=== PATIENT | female | born 1990 | race Two or more races ===

== ENCOUNTER 2023-03-24 12:53 | Outpatient (AMB) | payer OTHER, MEDICAID, SELFPAY ==
--- NOTE | 2023-03-24 12:57 | MHC.OFFVIS ---
Intake Vital Signs 03/24/23 13:00 Height 5 ft 2 in Weight 130 lb BMI 23.8 BP 138/98 H Blood Pressure Location Rt brachial Position Sitting Pulse 80 Pulse Source Pulse Oximeter Pulse Oximetry (%) 98 Oxygen Delivery Method Room Air Intake Visit Reasons: ENP-Tingling on numbness of hand and feet Intake Note: Patient presents for tingling and numbness on hands and feet. Patient states This started several years ago I had an EMG and blood work and I tested positive for RA with positive HERNESTO after that I started having a lot of joint pain. I ended up seeing a rheumotologist who ran more test and diagnosed me hashimotto disease Allergies No Known Allergies Allergy (Verified 03/24/23 13:08) Medication List - Last Reconciled 03/24/23 by MARYLOU Pepe dupilumab (Dupixent) 300 mg subcut QWEEK fluticasone propionate 220 mcg/actuation (Flovent HFA) inhalation loratadine 10 mg PO DAILY lorazepam 0.5 mg PO BID PRN HPI HPI Comments History of Present Illness Details Right handed 33-yr-old female presents for neurological evaluation of: BUE/BLE paresthesias. PMH significant for RA, thyroid dz, eosonophilic esophagitis. Pt reports that she has had Bilateral hands (sometimes up to elbows) and feet numbness and tingling for many years. This comes and goes randomly- she can just be sitting or sleeping. Her feet will often wake her up at night. She feels her hands are not as strong- difficulty opening jars, brushing her hair makes her hands feel tired/weak. Her finger and toe nails often become purple. Her hands and feet are usually cold. She has swelling in her hands and feet. Chronic neck pain that may shoot into her shoulders, chronic non-radiating low back pain- feels like she is sleeping a bit better since she obtained a sleep number bed. Denies leg/feet weakness. No usual exercise- has a peleton- but hurt her tailbone and her neck bothers her. 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 Pt was diagnosed w/ RA several years ago- was having hand pain/weakness. Manages w/ prn Tylenol, heat, ice. Pt was diagnosed w/ eosonophilic esophagitis (EOE) in May 2022- she was having difficulty swallowing, GERD, abd pain. Started on Dupixent x's 5 months which has been helpful. She is f/b Dr Red at [facility] and Gertrude Fournier at [facility]. She was diagnosed w/ Cindy's thyroiditis- currently euthyroid, f/b Dr Sharon Sloan ([facility]). Previous c-spine MRI- Abnormal cervical curvature likely d/t muscle spasm. Multi-level degenertaive changes, most pronounced at C5-6 w/ small left paramedian disc extrusion, effecament of the anterior left aspect of the spinal cord. Patient endorses: Knee swelling. Mild headaches. Some lightheaded/dizziness. Hands and feet muscle cramps. Restlessness. And patient denies: Snoring. She has a family h/o RA on her mother's side. No known family h/o neuropathy (father is adopted). [facility] Medical History (Updated 03/24/23 @ 18:05 by MARYLOU Pepe) Eosinophilic esophagitis Depression Surgical History (Updated 03/17/23 @ 11:41 by MALKA Alvarado) History of esophagogastroduodenoscopy (EGD) Hx laparoscopic cholecystectomy Family History Father HTN (hypertension) Social History Alcohol intake: never Patient Tobacco Use Status: Never used Tobacco Review of Systems Const Details: See scanned ROS form Physical Exam Vital Signs: Last Vital Signs Pulse 80 03/24/23 13:00 BP 138/98 H 03/24/23 13:00 Pulse Ox 98 03/24/23 13:00 Oxygen Delivery Method Room Air 03/24/23 13:00 BMI result Body Mass Index 23.8 Const General: cooperative and no acute distress Orientation/consciousness: patient oriented x3 HEENT Head: Yes normocephalic Resp Effort & Inspection: normal respiratory effort and able to speak in complete sentences Back/Spine/Pelvis Other: Bilateral posterior cervical tightness. Cervical ROM: very limited in all pemberton Left Spurling: elicits posterior neck non-radiating pain Right Spurling: elicits posterior neck non-radiating pain Neuro Other: BUE- vibration sensation dulled. BUE- positive Tinel, Phalen, Medial compression test. BLE- position sense, vibration, light/sharp touch intact. 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) Deep tendon reflexes (DTR's): Right triceps reflex intensity grade: 2+, Left triceps reflex intensity grade: 2+, Rt Biceps (C5, C6): 2+, Left biceps reflex intensity grade: 2+, Right brachioradialis reflex intensity grade: 2+, Left brachioradialis reflex intensity grade: 2+, Right patellar reflex intensity grade: 2+ and Left patellar reflex intensity grade: 2+ Plantar Reflex Responses: downgoing: bilateral Psych Appearance: grossly normal Mental Status: mental status grossly normal Speech and movement: Normal speech and movement present Affect: normal affect Attitude: cooperative Thought process: Normal thought process present Thought content: Normal thought content present Insight: Good insight present (Psych) Assessment & Plan Assessment & Plan (1) Paresthesias: Comment: BUE and BLE- symmetric Code(s): R20.2 - Paresthesia of skin (2) Cervicalgia: Code(s): M54.2 - Cervicalgia Plan Will check labs for common etiologies of paresthesias. Pt advised to undergo BUE then BLE EMG/NCS. Pt is not interested in trying any medications at this point. f/u in 3 months or sooner prn. Orders: Orders Folate Today E06.3 - Autoimmune thyroiditis, F32.A - Depression, unspecified, M06.9 - Rheumatoid arthritis, unspecified, R20.2 - Paresthesia of skin Ferritin Today E06.3 - Autoimmune thyroiditis, F32.A - Depression, unspecified, M06.9 - Rheumatoid arthritis, unspecified, R20.2 - Paresthesia of skin Comprehensive Met. Panel Today E06.3 - Autoimmune thyroiditis, F32.A - Depression, unspecified, M06.9 - Rheumatoid arthritis, unspecified, R20.2 - Paresthesia of skin Complete Blood Count Auto Diff Today E06.3 - Autoimmune thyroiditis, F32.A - Depression, unspecified, M06.9 - Rheumatoid arthritis, unspecified, R20.2 - Paresthesia of skin NE electromyogram (EMG) Today E06.3 - Autoimmune thyroiditis, M06.9 - Rheumatoid arthritis, unspecified, R20.2 - Paresthesia of skin Vitamin B12 and Folate Today E06.3 - Autoimmune thyroiditis, F32.A - Depression, unspecified, M06.9 - Rheumatoid arthritis, unspecified, R20.2 - Paresthesia of skin IRON PROFILE Today E06.3 - Autoimmune thyroiditis, F32.A - Depression, unspecified, M06.9 - Rheumatoid arthritis, unspecified, R20.2 - Paresthesia of skin NE electromyogram (EMG) Today E06.3 - Autoimmune thyroiditis, M06.9 - Rheumatoid arthritis, unspecified, R20.2 - Paresthesia of skin Coding Level of Care Code New Pt Level 4 (63143) Diagnoses Paresthesias R20.2 Cervicalgia M54.2
[2023-03-24 13:00] VITALS: BP 138/98; PULSE 80; O2SAT 98; BMI 23.8
== END 2023-03-24 14:19 | disposition home or self-care (01) ==
PROVIDERS: Visit Provider Nurse Practitioner Family
DX: R20.2 Paresthesia of skin (principal); M54.2 Cervicalgia
CPT/HCPCS: 99204

== ENCOUNTER → 2023-03-24 12:53 | Outpatient (BNVA) | payer OTHER, MEDICAID, SELFPAY | PROVIDERS: Visit Provider Nurse Practitioner Family ==

== ENCOUNTER 2025-01-25 14:15 | Outpatient (AMB) | payer OTHER, SELFPAY ==
[2025-01-25 14:30] VITALS: BP 102/70; PULSE 92; O2SAT 99; BMI 24.3
--- NOTE | 2025-01-25 14:30 | A.OFFVIS_ITS ---
Vital Signs 3 01/25/25 14:30 Height 5 ft 2 in Weight 132 lb 11.492 oz BMI 24.3 BP 102/70 Blood Pressure Location Lt brachial Position Sitting Pulse 92 Pulse Source Pulse Oximeter Pulse Oximetry (%) 99 Oxygen Delivery Method Room Air Intake Visit Reasons: Hashimotos Intake Note: New patient present today for Hashimotos. 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 Diagnosed in early 30s. Diagnosed by rhuematology Dr. Howard . diagnosed with Hashimotos. Started levothyroxine Jul 2024. Currently on levothyroxine 25 mcg Wednesday to feels nothing much has since she has been on levothyroxine Chronic fatigue remains Joint pains gained 5 lbs in 2 months or so Reports palpitations intermittently no tremors on exam Reports some blurriness of vision, does have asitgmatism constipation Reports hair loss No skin changes Patient denies any difficulty swallowing, pain on swallowing or voice changes or difficulty breathing. LMP : over a year ago Not since IUD, Mirena in 2023 Patient denies any history of childhood neck radiation. Denies having ever used lithium, amiodarone or biotin supplements. Patient denies any family history of thyroid cancer or thyroid disease. 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 No drug use Alcohol: no alcohol Physical exam General: sitting comfortably in no acute distress HEENT: normocephalic/atraumatic, EOM intact, moist oral mucosa Neck: supple, palpable 0.5 cm left-sided nodule Cardiac: normal heart sounds Pulm: normal breath sounds B/L, no added breath sounds Abd: not distended, no tenderness Extremities: no edema, no signs of myxedema Neuro: AAO x3, Speech: normal, no facial droop, moving all 4 extremities [facility] Medical History (Updated 03/24/23 @ 18:05 by MARYLOU Pepe) Eosinophilic esophagitis Depression Surgical History History of esophagogastroduodenoscopy (EGD) Hx laparoscopic cholecystectomy Family History Father HTN (hypertension) Social History Alcohol intake: never Patient Tobacco Use Status: Never used Tobacco Physical Exam Vital Signs: Last Vital Signs Pulse 92 01/25/25 14:30 BP 102/70 01/25/25 14:30 Pulse Ox 99 01/25/25 14:30 Oxygen Delivery Method Room Air 01/25/25 14:30 BMI result Body Mass Index 24.3 Assessment & Plan Assessment & Plan (1) Cindy's thyroiditis: Code(s): E06.3 - Autoimmune thyroiditis Category: Medical Plan: 34-year-old female coming in today for initial evaluation of Cindy's thyroiditis. She has a lot of chronic nonspecific symptoms, has a underlying RA some of these could be from them. Blood work from July 2024 showed high normal TSH of 3.99, apparently she has a history of positive TPO antibodies diagnosed by Rheumatology in the past. While this TSH was normal, she was started on levothyroxine 25 mcg Wednesday to which she has been taking. She does not report any improvement in her symptoms since taking the levothyroxine. At this point we will repeat labs. I explained to her that TPO antibodies can be prevalent in 10-20% of the general population, and there is no predictability whether and when she will develop thyroid dysfunction. We usually recommend annual TFTs done with the PCP. At this point she has been on levothyroxine 25 mcg Wednesday to but it is not helping her, so I will repeat labs today, and depending on that most likely we will take her off the levothyroxine and plan to repeat labs again prior to her next follow up. During my exam I do feel a palpable nodule on the left side, about 0.5 cm. We will do a thyroid ultrasound. Plan: -ordered ultrasound of the thyroid -ordered TSH, free T4, TPO antibodies and total T3 -we will reach out with the results -for now continue levothyroxine as it is but we will communicate results do and further recommendations regarding the levothyroxine over the phone -follow up in 8 weeks Plan I spent 45 minutes in reviewing the record, seeing the patient and documenting in the medical record. Orders: Orders 2 Thyroid Stimulating Hormone Today E06.3 - Autoimmune thyroiditis Triiodothyronine T3 Total Today E06.3 - Autoimmune thyroiditis Free T4 (Free Thyroxine) Today E06.3 - Autoimmune thyroiditis Thyroid Peroxidase Antibodies Today E06.3 - Autoimmune thyroiditis US thyroid Today E06.3 - Autoimmune thyroiditis Patient Instructions: Do blood work now , we will reach out with results Do thyroid ultrasound , someone will call you to schedule this , please make sure this is done prior to my next follow up Follow up in 8 weeks to discuss results Coding Level of Care Code New Pt Level 4 (65925) Diagnoses Cindy's thyroiditis E06.3 Time Spent (min) 45
== END 2025-01-25 15:35 | disposition home or self-care (01) ==
LOC: HO.ENCR 14:16
PROVIDERS: PCP Internal Medicine; Visit Provider Student in an Organized Health Care Education/Training Program
DX: E06.3 Autoimmune thyroiditis (principal)
CPT/HCPCS: 99204

== ENCOUNTER → 2025-01-25 14:15 | Outpatient (BNVA) | payer OTHER, SELFPAY | PROVIDERS: PCP Internal Medicine; Visit Provider Student in an Organized Health Care Education/Training Program | DX: E06.3 Autoimmune thyroiditis (principal) | CPT/HCPCS: 99202 ==

== ENCOUNTER 2025-03-26 09:29 | Outpatient (REF) | payer OTHER, SELFPAY ==
--- NOTE | ~2025-03-26 | US_ITS ---
EXAMINATION: US THYROID HISTORY: E06.3 - Autoimmune thyroiditis TECHNIQUE: Real-time grayscale ultrasound imaging was performed and images were reviewed. COMPARISON: There are no prior studies available for comparison. FINDINGS: SIZE: The right thyroid lobe measures 5.0 x 1.7 x 1.5 cm. The left thyroid lobe measures 4.2 x 1.3 x 1.7 cm. The isthmus measures 2 mm. FLOW: Flow to the gland is increased. ECHOGENICITY: The echotexture of the gland is heterogeneous. NODULES: No nodules are identified. There is a normal-appearing exposure 4 x 5 mm lymph node inferior to the left thyroid lobe. US/US thyroid IMPRESSION: Heterogeneous thyroid echotexture with increased vascularity. No discrete nodules are identified. ACR TI-RADS Guidelines TR1 (0 points): Benign. No follow-up or biopsy required TR2 (2 points): Not Suspicious. No biopsy or follow up indicated TR3 (3 points): Mildly Suspicious. FNA if >= 2.5 cm, Follow if >= 1.5 cm TR4 (4-6 points): Moderately Suspicious. FNA if >= 1.5 cm, Follow if >= 1.0 cm TR5 (>=7 points): Highly Suspicious. FNA if >= 1.0 cm, Follow if >= 0.5 cm Electronically signed by: Axel Gimenez MD 03/26/2025 09:56 AM EDT
--- OUTSIDE RECORDS SUMMARY | 2025-03-26 11:26 | XMS_ITS | Clinical Summary ---
Author Organization [employer] Address [address] [place] [address] [address] [place] [address] Care Team Providers Care Market Intelligence Consultant Name Role Phone Unavailable Primary Care Provider Unavailabl e Allergies Active Allergy Reactions Criticality Noted Date Comments Bee Venom 05/20/2023 [place]-Containing Products Swelling 10/20/2022 Milk-Related Compounds Diarrhea 10/20/2022 Peanut-Containing Drug Products Anaphylaxis High 05/2023 Tomato Swelling 10/20/2022 Medications busPIRone (Buspar) 5 MG tablet Take 1 tablet by mouth every 12 (twelve) hours. 2 Active citalopram (CeleXA) 10 MG tablet Take 1 tablet by mouth in the morning. Active etonogestrel-eth inyl estradiol (NuvaRing) 0.12-0.015 MG/24HR vaginal ring Insert into the vagina. Active omeprazole (PriLOSEC) [address] capsule Take 1 capsule by mouth at bed time. Active sertraline (Zoloft) 25 MG tablet Take 1 tablet by mouth at bed time. Active Dupixent 300 MG/2ML injection 3 Active LORazepam (Ativan) 0.5 MG tablet Take 0.5 mg by mouth if needed in the morning and at bedtime. 3 Active D3 50 MCG (1999 UT) tablet Take by mouth Once per day. 4 Active fluticasone (Flonase) 50 MCG/ACT nasal spray Administer 2 sprays into each nostril Once per day. 4 Active loratadine (Claritin) 10 MG tablet Take 10 mg by mouth at bedtime. 4 Active ergocalciferol (Vitamin D2) 1.25 MG (67549 UT) capsule TAKE 1 CAPSULE BY MOUTH ONE TIME PER WEEK 4 Active spironolactone (Aldactone) 50 MG tablet TAKE 1 TABLET BY MOUTH EVERY DAY WITH FOOD Active Levonorgestrel 20 MCG/DAY intrauterine device 1 Each by Intrauterine route Once. 3 028 Active Active Problems Problem Noted Date Diagnosed Date Vitamin D deficiency 08/10/2019 Anxiety and depression 03/18/2018 Encounters Date Type Department Care Team Description 01/02/2025 8:00 AM EDT Office Visit [facility] [address] [place] [address] Avis Clifford Dental calculus (Primary Dx) from Last 3 Months Social History Tobacco Use Types Packs/Day Years Used Date Smoking Tobacco: Never Passive Smoke Exposure: Never Smokeless Tobacco: Never Tobacco Cessation:Counseling Given: Not Answered Alcohol Use Standard Drinks/Week Comments Never 0 (1 standard drink = 0.6 oz pur e alcohol) Comments Unknown Sex and Gender Information Value Date Recorded Sex Assigned at Female 05/11/2022 10:22 AM EDT Legal Sex Female 10:22 AM EDT Gender Identity Female 05/11/2022 10:22 AM EDT Sexual Orientation Straight 05/11/2022 10 :22 AM EDT Last Filed Vital Signs Vital Sign Reading Time Taken Comments Blood Pressure 126/74 01/02/2025 8:04 AM EDT Pulse 76 01/21/2024 9:01 AM EDT Temperature - - Respiratory Rate - - Oxygen Saturation - - Inhaled Oxygen Concentration - - Weight - - Height - - Body Mass Index - - Plan of Treatment Upcoming Encounters Date Type Department Care Team (Late st Contact Info) Description 07/11/2025 10:00 AM EST Office Visit [facility] [address] [place] [address] Avis Clifford Health Maintenance Due Date Last Done Comments Depression Screening 1989 HIV Screening 1989 SDOH Screening 1989 Disability Screening 1989 IPV Vaccines (2 of 3 - 4-dose series) 12/14/1991 11/16/1991 Alcohol/Substance Use Screening 2001 Hepatitis B Vaccines (4 of 4 - 4-dose series) 06/20/2001 06/06/2001, 06/06/2001, 04/25/2001, Additional history exists Family Planning (PISQ) 02/12/2004 Hepatitis C Screening 2007 Pap Smear 2010 Cervical Cancer Screening 2019 HPV/Cotest 2019 Dental Oral Exam 07/24/2024 01/21/2024, 03/2023, 04/07/2022 COVID-19 Vaccine ( - season) 2025 05/16/2021, 10/17/2020, 09/26/2020 Influenza Vaccine (#1) 2025 , 04/27/2023, 04/18/2021, Additional history exists Dental Prophylaxis 07/05/2025 01/02/2025, 0 01/21/2024, 05/20/2023, Additional history exists DTaP/Tdap/Td Vaccines (9 - Td or Tdap) 07/25/2025 07/25/2015, 12/17/2011, 11/09/2007, Additional history exists Tobacco Screening 01/02/2026 01/02/2025 Dental X-Ray: Bitewings 01/03/2026 01/03/20, 05/20/2023, 04/07/2022 Dental X-Ray: Full Mouth 01/04/2028 01/02/2025, 04/12 Zoster Vaccines (1 of 2) 2039 RSV Patients and Patients Aged 60 years or older (1 - 1-dose 75+ series) 02/12/2064 HIB Vaccines Completed 11/16/1991, 11/16/1991 Meningococcal Vaccine Aged Out 01/27/2007 No doug kingston eligible based on patient's age to complete this topic HPV Vaccines Completed 11/09/2007, 01/09, 11/18/2006 Hepatitis A Vaccines Aged Out No long er eligible based on patient's age to complete this topic Meningococcal B Vaccine Aged Out No l onger eligible based on patient's age to complete this topic Pneumococcal Vaccine: Pediatrics (0 to 5 Years) and At-Risk Patients (6 to 49) Years Aged Out No longer eligible based on patient's age to complete this topic RSV under 20 months Aged Out No longe r eligible based on patient's age to complete this topic Rotavirus Vaccines Aged Out No longer eligible based on patient's age to complete this topic Procedures Procedure Name Priority Date/Time Associated Diagnosis Comments COMPREHENSIVE PERIODONTAL EVALUATION - NEW OR ESTABLISHED PATIENT Routine 01/02/2025 8:00 AM EDT INTRAORAL - COMPLETE SERIES OF RADIOGRAPHIC IMAGES Routine 01/02/2025 8:00 AM EDT ORAL HYGIENE INSTRUCTIONS Routine 2024 8:00 AM EDT CASE PRESENTATION, DETAILED AND EXTENSIVE TREATMENT PLANNING Routine 01/02/2025 8:00 AM EDT PROPHYLAXIS - ADULT Routine 01/02/2025 8 :00 AM EDT PERIODIC ORAL EVALUATION - ESTABLISHED PATIENT Routine 01/21/2024 9:00 AM EDT from Last 3 Months or Most Recently Relevant to Health Maintenance Insurance [place] [facility] [id number]
--- OUTSIDE RECORDS SUMMARY | 2025-03-26 11:26 | XMS_ITS | Encounter Summary ---
Author Organization [employer] Address [address] [place] [address] [address] [place] [address] Care Team Providers Care Safety Instructor Name Role Phone Unavailable Primary Care Provider Unavailabl e Encounter Details Date Type Department Care Team (Latest Contact Info) Description 06/20/2019 Abstract [facility] CONVERSIONS Dental, Provider, DDS Social History Tobacco Use Types Packs/Day Years Used Date Smoking Tobacco: Never Assessed Comments Unknown Sex and Gender Information Value Date Recorded Sex Assigned at Female 05/11/2022 10:22 AM EDT Legal Sex Female 10:22 AM EDT Gender Identity Female 05/11/2022 10:22 AM EDT Sexual Orientation Straight 05/11/2022 10 :22 AM EDT documented as of this encounter Plan of Treatment Upcoming Encounters Date Type Department Care Team (Late st Contact Info) Description 07/11/2025 10:00 AM EST Office Visit [facility] [address] [place] [address] Avis Clifford documented as of this encounter Visit Diagnoses Not on filedocumented in this encounter
--- OUTSIDE RECORDS SUMMARY | 2025-03-26 11:26 | XMS_ITS | Encounter Summary ---
Author Organization [employer] Address [address] [place] [address] [address] [place] [address] Care Team Providers Care Associate Broker Name Role Phone Unavailable Primary Care Provider Unavailabl e Encounter Details Date Type Department Care Team (Latest Contact Info) Description 04/07/2022 Abstract [facility] CONVERSIONS Dental, Provider, DDS Social History [...] 07/11/2025 10:00 AM EST Office Visit [facility] [address] [place] [address] Avis Clifford documented as of this encounter Visit Diagnoses Not on filedocumented in this encounter
--- OUTSIDE RECORDS SUMMARY | 2025-03-26 11:26 | XMS_ITS | Encounter Summary ---
Author Organization [employer] Address [address] [place] [address] [address] [place] [address] Care Team Providers Care Paper Colorer Name Role Phone Unavailable Primary Care Provider Unavailabl e Encounter Details Date Type Department Care Team (Latest Contact Info) Description 10/17/2020 Abstract [facility] CONVERSIONS Dental, Provider, DDS Social History [...] Description 07/11/2025 10:00 AM EST Office Visit [facility] [address] [place] [address] Avis Clifford documented as of this encounter Visit Diagnoses Not on filedocumented in this encounter
--- OUTSIDE RECORDS SUMMARY | 2025-03-26 11:26 | XMS_ITS | Clinical Summary ---
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 8 mL 11 3 Active cyclobenzaprin e (FLEXERIL) 10 mg tablet Take 0.5-1 Tablets by mouth 2 times daily as needed for Muscle spasms. Medication may cause drowsiness, do not drive/operate machinery while taking 4 Active levonorgestreL (MIRENA) 21 mcg/24 hr (8 yrs) 52 mg IUD 1 Each by Intrauterine route Once. 3 028 Active LORazepam (ATIVAN) 1 mg tablet Take 1 mg by mouth daily as needed. Active SUMAtriptan (IMITREX) 25 mg tablet May repeat dose once after 2 hours, if needed. 4 Active Vitamin D3 50 mcg (2,000 unit) tablet TAKE 1 TABLET BY MOUTH EVERY DAY 90 tablet 1 5 Active levothyroxine (SYNTHROID, LEVOTHROID) 25 mcg tablet Take 1 tablet (25 mcg total) by mouth See administration instructions. Take 1 capsule daily from Wednesday to . 90 each 1 5 Active amitriptyline (ELAVIL) 10 mg tablet Take 1 tablet (10 mg total) by mouth. 3 Active loratadine (CLARITIN) 10 mg tablet TAKE 1 TABLET BY MOUTH EVERYDAY AT BEDTIME 90 tablet 1 5 Active fluticasone propionate (FLONASE) 50 mcg/actuation nasal spray SPRAY 2 SPRAYS INTO EACH NOSTRIL EVERY DAY 48 mL 1 5 Active Active Problems Problem Noted Date Diagnosed Date Gastroesophageal reflux dise ase with esophagitis without hemorrhage 01/25/2025 Migraine without aura and wi thout status migrainosus, not intractable 01/25/2025 Vaginal discharge 09/10/2023 Overview (04/25/2024): Last Assessment & Plan: I explained her LLQ pain and vaginal discharge are likely related to ovulation. No evidence of infection. I recommended she use ibuprofen or Tylenol to treat cramping. Vulvar irritation 09/10/2023 Overview (04/25/2024): Last Assessment & Plan: Likely from shaving. Recommended she use a anamika instead of a razor to shave to avoid irritation in the future. Use coconut oil or Vaseline for now for comfort. 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 Red Varicose veins with pain 04/29/2018 Anxiety and depression 03/18/2018 Eczema 03/18/2018 Noncompliance 10/30/2014 Papanicolaou smear of cervix with atypical squamous cells cannot exclude high grade squamous intraepithelial lesion (ASC-H) 01/23/2010 Encounters Date Type Department Care Team Description 03/02/2025 8:20 AM EDT Office Visit Gastroenterology - [address] [facility] [address] [place] [phone] Clare Red MD Eosinophilic esophagitis (Primary Dx); Screening for malignant neoplasm of colon 01/03/2025 Telephone Adult Medicine [address] [phone] Jarred Neves MD from Last 3 Months Immunizations Name Administration Dates Next Due DTaP (Infanrix) 6wks to less than 7yo ,12/16/1993,10/09/1992,02/01,11/16/1991 [id number] (Pentacel) 2mo to less than 5yo 11/16/1991 H1N1 Inj Preservative Free 05/22/2009 HPV, Quadrivalent 11/09/2007,01/27/2007,11/19/19 07 Hepatitis B Pediatric (Enger ix B; Recombivax HB) to less than 20 yo 06/06/2001,04/25/2001,01/08/1998 Influenza trivalent, 0.5mL, preservative free (Fluarix; FluLaval; Fluzone) ages 6mo and older (Afluria) 3 years and older 05/02/2015,07/21/2012 Influenza, Unspecified 04/18/2021,04/11/2014 MMRV, measles mumps rubella and varicella live (Proquad) 4yo to less than 7yo 01/07/1996,11/16/1991 Meningococcal Polysaccharide 01/27/2007 Td Tetanus diptheria (Tdvax) 7yo and older 04/25/2001 Tdap Tetanus diptheria acell ular pertussis (Boostrix; Adacel) 7yo and older 07/25/2015,12/17/2011,11/09/2007 Surgical History Surgery Date Site/Laterality Comments CHOLECYSTECTOMY 02/07/14 Dr Tolbert PROCEDURE: LAPAROSCOPIC CHOLECYSTECT ESOPHAGOGASTRODUODENOSCOPY 11/19/2023 nl esophagus and gastric bx (on Dupixent) ESOPHAGOGASTRODUODENOSCOPY 05/13/2022 nl gastric bx, up to 100 eos/hpf on bx ESOPHAGOGASTRODUODENOSCOPY 12/29/2019 no celiac, nl gastric bx, mild reflux esophagitis <10 eos/hpf Medical History Medical History Date Comments Esophageal reflux DX:Esophageal reflux Varicose vein of leg 10/18/2014 DX:Varicose vein of leg Eczema 03/18/2018 DX:Eczema Anxiety and depression 03/18/2018 DX:Anxiet y and depression IBS (irritable bowel syndrome) 11/04/2018 D X:IBS (irritable bowel syndrome); COMMENT: F/u Dr. Red Eosinophilic esophagitis Migraine headache Family History Medical History Relation Name Comments Crohn's disease Aunt 1 diverticulit is Colon cancer Aunt 2 30s Rheum arthritis Aunt 3 gallbladder cyst No Known Problems Brother x3 materna l half brothers No Known Problems Daughter 1 ADD / ADHD Daughter 2 No Known Problems Father No Known Problems Maternal Grandfather gastric cancer Maternal Grandmother Other: Varicose veins Mother Rheum arthritis Mother's side 1 great gra ndmother Other: lupus Mother's side 2 cousin Ovarian cancer Mother's side 3 maternal c ousin Other: Varicose veins Sister Colon cancer Uncle maternal uncle Blindness Neg Hx Breast cancer Neg Hx Cataracts Neg Hx Glaucoma Neg Hx Macular degeneration Neg Hx Strabismus Neg Hx Relation Name Status Comments Aunt 1 Alive MatAunt Eneida Aunt 2 MatAunt Susie Aunt 3 MatAunt Erika Brother Alive Daughter 1 Alive Daughter 2 Alive Father Alive Adopted Maternal Grandfather Maternal Grandmother Alive Mother Alive Patient was blankenship sed by MatAunt Eneida Mother's side 1 Alive Mother's side 2 Alive Mother's side 3 Other Sister Alive Uncle Social History Tobacco Use Types Packs/Day Years Used Date Smoking Tobacco: Never Smokeless Tobacco: Never Tobacco Cessation:Counseling Given: Not Answered Alcohol Use Standard Drinks/Week Comments Not Currently 0 (1 standard drink = 0.6 oz pur e alcohol) Comments No Sex and Gender Information Value Date Recorded Sex Assigned at Not on file Legal Sex Female 8:58 AM EST Gender Identity Not on file Sexual Orientation Not on file Obstetrics History Para Term AB IAB SAB Ectopic Multiple Livin g Live Births 2 1 1 2 2 Date Outcome GA Total Labor Labor/2nd/3rd Weight Sex Type Anes PTL Zee A1 A5 Name Clin 2009 Term 41w 1d 8h 26m/ 2722 g (96 oz) F Vag-S pont Epidur al Livin g 8 9 Myah peck CNM Delivery Location:[facility] Comments:GBS +, compou nd presentation R fist, 1st degree perilac and bilat labial lac. 2015 40w 3d 9h 56m/ 2863 g (101 oz) F Vag-S pont Epidur al Livin g 8 9 de la Guard ia Delivery Location:[facility] Comments:GBS+ , intact Last Filed Vital Signs Vital Sign Reading Time Taken Comments Blood Pressure 116/79 09/05/2024 3:04 PM EST Pulse 75 09/05/2024 3:04 PM EST Temperature 36.6 C (97.8 F) 09/01/2024 1:54 PM EST Respiratory Rate 14 09/01/2024 1:54 PM EST Oxygen Saturation - - Inhaled Oxygen Concentration - - Weight 59.6 kg (131 lb 6.4 oz) 03/02/2025 8:09 A M EDT Height 157.5 cm (5' 2 ) 03/02/2025 8:09 AM EDT Body Mass Index 24.03 03/02/2025 8:09 AM EDT Plan of Treatment Upcoming Encounters Date Type Department Care Team (Late st Contact Info) Description 07/27/2025 10:30 AM EST Office Visit Adult Medicine [address] [phone] Jarred Neves MD [address] [place] [address] Health Maintenance Due Date Last Done Comments IPV Vaccines (2 of 3 - 4-dose series) 12/14/1991 11/16/1991 Hepatitis B Vaccines (4 of 4 - 4-dose series) 06/20/2001 06/06/2001, 04/25/2001, 01/08/1998 HIV Screening 06/20/2022 Hepatitis C Screening 06/20/2022 Social Influencers of Health Screening 06/20/2022 Depression Screening 07/12/2024 07/26/2023 COVID-19 Vaccine ( season) 2025 05/16/2021, 10/17/2020, 09/26/2020 Influenza Vaccine (#1) 2025 , 04/27/2023, 04/18/2021, Additional history exists DTaP,Tdap,and Td Vaccines (9 - Td or Tdap) 07/25/2025 07/25/2015, 12/17/2011, 11/09/2007, Additional history exists Cholesterol Screening (Lipid Panel) 07/28/2029 07/28/2024, 07/26/2023 Cervical Cancer Screening: HPV 09/05/2029 09/05/2024, 09/11/2019 HIB Vaccines Completed 11/16/1991, 11/16/1991 MMR Vaccines Completed 01/07/1996, 12/11, 11/16/1991, Additional history exists Varicella Vaccines Completed 01/07/1996, 11/16/1991 Meningococcal ACWY Vaccine Aged Out 01/27/2007 N o longer eligible based on patient's age to complete this topic HPV Vaccines Completed 11/09/2007, 01/09, 11/18/2006 Hepatitis A Vaccines Aged Out No long er eligible based on patient's age to complete this topic Meningococcal B Vaccine Aged Out No l onger eligible based on patient's age to complete this topic Pneumococcal Vaccine: Pediatrics (0 to 5 Years) and At-Risk Patients (6 to 49 Years) Aged Out No longer eligible based on patient's age to complete this topic RSV Immunization Patients Under 20 months Aged Out No longer eligible based on patient's age to complete this topic Procedures Procedure Name Priority Date/Time Associated Diagnosis Comments HPV WITH REFLEX GENOTYPE Routine 09/05/2024 3:27 PM EST Encounter for annual physical examination excluding gynecological examination in a patient older than 17 years LIPID PANEL WITH REFLEX TO DIRECT LDL Routine 07/28/2024 9:19 AM EST Cindy's disease Mixed hyperlipidemia Physical exam Screening for diabetes mellitus (DM) Vitamin D deficiency disease Screening for deficiency anemia HM DEPRESSION SCREENING Routine 07/26/2023 from Last 3 Months or Most Recently Relevant to Health Maintenance Results * HPV with reflex genotype (09/05/2024 3:27 PM EST) HPV Negative Negative LAB MICROBIOLOGY METHOD 09/06/2024 4:56 PM [facility] Brushing Cervix uteri structure / Unknown 09/05/2024 3:27 PM EST 09/06/2024 5:51 AM EST Rakel Jarrett [facility] MOLECULAR DIAGNOSTICS ORD ERABLES Final Result [facility] [address] [place] [address], [place] [phone] * (ABNORMAL) Lipid panel with reflex to direct LDL (07/28/2024 9:19 AM EST) Cholesterol 206(H) 0 - 200 mg/dL LAB CHEMISTRY METHOD 07/28/2024 1:29 PM [facility] Triglycerides 68 0 - 150 mg/dL LAB CHEMISTRY METHOD 07/28/2024 1:29 PM [facility] HDL 66 >=40 mg/dL LAB CHEMISTRY METHOD 07/28/2024 1:29 PM [facility] LDL Calculated 126(H) 0 - 100 mg/dL LAB CHEMISTRY METHOD 07/28/2024 1:29 PM [facility] VLDL Cholesterol Rolando 13.6 mg/dL LAB CHEMISTRY METHOD 07/28/2024 1:29 PM [facility] Non HDL Chol. (LDL+VLDL) 140 <145 mg/dL LAB CHEMISTRY METHOD 07/28/2024 1:29 PM [facility] Chol/HDL Ratio 3.1 0.0 - 4.4 LAB CHEMISTRY METHOD 07/28/2024 1:29 PM [facility] Blood Venous blood specimen / Unknown Venipuncture / Unknown 07/28/2024 9:19 AM EST 07/28/2024 9:19 AM EST Jarred Neves MD LAB BLOOD ORDERABLES Final Result [place] ([facility]) [facility] [address] [place] [address], [place] [phone] * Depression Screening (07/26/2023) [facility] Signature Depression Screening Abstracted Historical Provider HEALTH MAINTENANCE Final Result from Last 3 Months or Most Recently Relevant to Health Maintenance Insurance [facility] [employer] Care Teams 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
[2025-03-26 14:06] LABS: Free T4 (Free Thyroxine) 0.87 ng/dL (0.71-1.85); Thyroid Stimulating Hormone 2.47 uIU/mL (0.32-4.0)
== END 2025-03-26 09:30 | disposition home or self-care (01) ==
LOC: HO.HMGCX 09:29
PROVIDERS: PCP Internal Medicine; Visit Provider Student in an Organized Health Care Education/Training Program
DX: E06.3 Autoimmune thyroiditis (principal)
CPT/HCPCS: 36415; 76536; 84439; 84443; 84480; 86376

== ENCOUNTER → 2025-03-26 09:37 | Outpatient (BNV) | payer OTHER, SELFPAY | PROVIDERS: PCP Internal Medicine; Visit Provider Radiology Diagnostic Radiology | DX: E06.3 Autoimmune thyroiditis (principal) | CPT/HCPCS: 76536 ==